=== PATIENT | male | born 1955 | race Caucasian/White ===

== ENCOUNTER 2016-10-15 18:35 | Emergency (ER) | payer OTHER ==
[~2016-10-15] VITALS: Ht 175.3 cm; Wt 89.4 kg
[2016-10-15 19:25] LABS: Basophils # (auto) 0.2 uL; Basophils % (auto) 1.4 % (0.0-2.0); CONDITION Y; Eosinophils # (auto) 0.4 uL; Eosinophils % (auto) 2.8 % (0.0-7.0); Hematocrit 49.4 % (41.0-53.0); Hemoglobin 16.7 g/dL (13.5-17.5); Lymphocytes # (auto) 3.1 uL; Lymphocytes % (auto) 23.9 % (10.0-50.0); Mean Corpuscular Hemoglobin 31.8 pg (28.0-32.0); Mean Corpuscular Hgb Conc. 33.8 g/dL (32.0-36.0); Mean Corpuscular Volume 94.3 fL (80.0-100.0); Mean Platelet Volume 8.5 fL (7.4-10.4); Monocytes # (auto) 1.2 uL; Monocytes % (auto) 9.3 % (0.0-12.0); Neutrophils # (auto) 8.2 uL; Neutrophils % (auto) 62.6 % (37.0-80.0); Platelet Count (auto) 348 10^3/uL (140-450); Red Cell Distribution Width 13.8 % (11.6-16.0); White Blood Cell 13.1 10^3/uL (4.4-10.8)
[2016-10-15 19:48] LABS: BUN/Creatinine Ratio 16.3; Bilirubin, Total 0.2 mg/dL (0.2-1.0); Calcium 9.1 mg/dL (8.5-10.1)
[2016-10-16] MEDS ORDERED: HYDROmorphone HCL 2 MG/ML VL IV ONE (02:15)
[2016-10-16] MEDS ORDERED: ONDANSETRON HCL 4 MG/2 ML VIAL IV ONE (02:15)
[2016-10-16] MEDS ORDERED: HYDROCORTISONE ACET 25 MG RECTAL SUPP PR ONE (02:15)
[2016-10-16 03:40] VITALS: BP 128/78
[2016-10-18] MEDS ORDERED: GLIP-115 PO (22:18)
[2016-10-18] MEDS ORDERED: GABA-497 PO (22:18)
[2016-10-18] MEDS ORDERED: ROPI1TAB22 PO (22:18)
[2016-10-18] MEDS ORDERED: METF-370 PO (22:18)
== END 2016-10-16 03:44 | disposition home or self-care (01) ==
LOC: ER 18:41
DX: K64.2 Third degree hemorrhoids (principal); Z88.5 Allergy status to narcotic agent
CPT/HCPCS: 36415; 80053; 85025; 96374; 96375; 99284; J1170; J2405